=== PATIENT | female | born 1960 | race Caucasian/White ===

== ENCOUNTER 2017-08-11 08:00 | Inpatient (IN) | payer OTHER ==
[2017-08-11] MEDS ORDERED: ACETAMINOPHEN 325 MG TAB PO (09:30)
[2017-08-11] MEDS ORDERED: NACL 0.9% 3 ML SYG IV (09:30)
[2017-08-11] MEDS ORDERED: METOCLOPRAMIDE 10 MG INJ IV (09:30)
[2017-08-11] MEDS ORDERED: ALBUTEROL/IPRATROPIUM (NEB) 3 ML AMP HHN (10:30)
[2017-08-11] MEDS ORDERED: NON-FORMULARY/PATIENT OWN MED (Budesonide-Formoterol Fumarate* (Symbicort*) 1 PUFF) INHALATION (10:30)
[2017-08-11] MEDS ORDERED: DIPHENHYDRAMINE 50 MG CAP PO (10:30)
[2017-08-11] MEDS: FUROSEMIDE 20 MG TAB PO (10:30)
[2017-08-11] MEDS: CEFTRIAXONE 1 GM/50 ML (PMX) 50 ML IVPB (11:37)
[2017-08-11] MEDS: FERROUS SULFATE (EC) 325 MG TAB PO ×2 (11:37→20:31)
[2017-08-11] MEDS: APIXABAN 5 MG TABLET PO ×2 (11:38→20:31)
[2017-08-11 11:41] LABS: ADD MAN DIFF? NO
[2017-08-11 11:44] LABS: WHITE BLOOD COUNT 10.9 10^3/ul (4.8-10.8)
[2017-08-11 11:44] LABS: BASOPHILS % 0.4 % (0.0-2.0); EOSINOPHILS % 0.1 % (0.0-7.0); HEMATOCRIT 37.6 % (37.0-47.0); HEMOGLOBIN 12.2 g/dl (12.0-16.0); LYMPHOCYTES # 0.7 10^3/ul (0.8-2.9); LYMPHOCYTES % 6.3 % (15.0-51.0); MEAN CORPUSCULAR HEMOGLOBIN 26.4 pg (29.0-33.0); MEAN CORPUSCULAR HGB CONC 32.4 g/dl (32.0-37.0); MEAN CORPUSCULAR VOLUME 81.4 fl (82.0-101.0); MEAN PLATELET VOLUME 10.7 fl (7.4-10.4); MONOCYTE # 0.3 10^3/ul (0.3-0.9); MONOCYTES % 2.8 % (0.0-11.0); NEUTROPHIL # 9.6 10^3/ul (1.6-7.5); NEUTROPHILS % 88.6 % (39.0-77.0); PLATELET COUNT 255 10^3/UL (140-415); RED BLOOD COUNT 4.62 10^6/ul (4.20-5.40); RED CELL DISTRIBUTION WIDTH 14.3 % (11.5-14.5)
[2017-08-11 11:55] LABS: HEMOGLOBIN A1C 5.3 % (0-5.9)
[2017-08-11] MEDS ORDERED: AZITHROMYCIN 500MG/NS (PMX) 250 ML IVPB (12:00)
[2017-08-11 12:03] LABS: LACTIC ACID 1.4 mmol/L (0.5-2.0)
[2017-08-11 12:09] LABS: ALANINE AMINOTRANSFERASE 23 IU/L (13-69); ALBUMIN 3.5 g/dl (3.3-4.9); ALBUMIN/GLOBULIN RATIO 1.02; ALKALINE PHOSPHATASE 90 IU/L (42-121); ANION GAP 11 (8-16); ASPARTATE AMINO TRANSFERASE 16 IU/L (15-46); BILIRUBIN,INDIRECT 0.2 mg/dl (0-1.1); BILIRUBIN,TOTAL 0.2 mg/dl (0.2-1.3); BLOOD UREA NITROGEN 14 mg/dl (7-20); CALCIUM 8.7 mg/dl (8.4-10.2); CARBON DIOXIDE 31 mmol/L (21-31); CHLORIDE 104 mmol/L (97-110); CREATINE KINASE 35 IU/L (23-200); CREATININE 0.65 mg/dl (0.44-1.00); GLUCOSE 121 mg/dl (70-220); IRON 23 ug/dl (35-150); MAGNESIUM 2.1 mg/dl (1.7-2.5); PHOSPHORUS 3.4 mg/dl (2.5-4.9); POTASSIUM 3.3 mmol/L (3.5-5.1); SODIUM 143 mmol/L (135-144); TOTAL PROTEIN 6.9 g/dl (6.1-8.1)
[2017-08-11 12:13] LABS: B-TYPE NATRIURETIC PEPTIDE 3510 PG/ML (0-125)
[2017-08-11 12:17] LABS: CK INDEX 5.7; CK-MB 1.99 ng/ml (0.0-2.4); TROPONIN-I 0.029 ng/ml (0.000-0.120)
[2017-08-11 12:18] LABS: % IRON SATURATION 7 % SAT (22-52); TOTAL IRON BINDING CAPACITY 328 ug/dl (241-421)
[2017-08-11 12:33] LABS: FREE T4 (FREE THYROXINE) 1.54 ng/dl (0.64-1.79)
[2017-08-11 12:44] LABS: THYROID STIMULATING HORMONE 0.108 MIU/L (0.465-4.680)
[2017-08-11 12:49] LABS: FERRITIN 95.4 ng/ml (11.1-264.0)
[2017-08-11] MEDS: ALBUTEROL/IPRATROPIUM (NEB) 3 ML AMP HHN ×2 (14:15→19:45)
[2017-08-11 14:49] LABS: ADD UMIC YES; UR ASCORBIC ACID NEGATIVE (NEGATIVE); UR BACTERIA FEW /HPF (NONE SEEN); UR BILIRUBIN (Dip) NEGATIVE (NEGATIVE); UR BLOOD (Dip) NEGATIVE (NEGATIVE); UR CLARITY SLIGHTLY CLOUDY (CLEAR); UR COLOR YELLOW (YELLOW); UR GLUCOSE (Dip) NEGATIVE (NEGATIVE); UR KETONES (Dip) 2+ mg/dL (NEGATIVE); UR LEUKOCYTE ESTERASE (Dip) 3+ Leu/ul (NEGATIVE); UR MUCUS FEW /HPF (NONE SEEN); UR NITRITE (Dip) NEGATIVE (NEGATIVE); UR RBC 46 /HPF (0-5); UR SPECIFIC GRAVITY (Dip) 1.023 (1.003-1.030); UR SQUAMOUS EPITHELIAL CELL MODERATE /HPF (FEW); UR TOTAL PROTEIN (Dip) 1+ mg/dl (NEGATIVE); UR UROBILINOGEN (Dip) 2+ mg/dL (NEGATIVE); UR WBC 17 /HPF (0-5)
[2017-08-11 15:25] LABS: BARBITURATES Negative (NEGATIVE); BENZODIAZEPINES Negative (NEGATIVE); CANNABINOIDS Negative (NEGATIVE); COCAINE Negative (NEGATIVE)
[2017-08-11 15:26] LABS: AMPHETAMINE/METHAMPHETAMINE POSITIVE (NEGATIVE); OPIATES Positive (NEGATIVE)
[2017-08-11] MEDS: POTASSIUM CHLORIDE (SR) 20 MEQ TAB PO (16:01)
[2017-08-11] MEDS: PANTOPRAZOLE (EC) 40 MG TAB PO (17:24)
[2017-08-11] MEDS: CARISOPRODOL 350 MG TAB PO (20:32)
[2017-08-11] MEDS: SOTALOL 80 MG TAB PO (20:33)
[2017-08-11] MEDS: HYDROCODONE/APAP (5/325) TAB PO (22:35)
[2017-08-11] MEDS: ALPRAZOLAM 0.5 MG TAB PO (22:35)
[2017-08-12] MEDS: AZITHROMYCIN 500MG/NS (PMX) 250 ML IVPB (00:39)
[2017-08-12] MEDS: PANTOPRAZOLE (EC) 40 MG TAB PO (05:50)
[2017-08-12] MEDS: ALBUTEROL/IPRATROPIUM (NEB) 3 ML AMP HHN (08:03)
[2017-08-12] MEDS: APIXABAN 5 MG TABLET PO (08:17)
[2017-08-12] MEDS: FERROUS SULFATE (EC) 325 MG TAB PO (08:17)
[2017-08-12] MEDS: SOTALOL 80 MG TAB PO (08:18)
[2017-08-12] MEDS: HYDROCODONE/APAP (5/325) TAB PO (08:19)
[2017-08-12] MEDS: FUROSEMIDE 20 MG TAB PO (08:23)
[2017-08-12 08:52] LABS: ADD MAN DIFF? NO
[2017-08-12 09:25] LABS: ALANINE AMINOTRANSFERASE 24 IU/L (13-69); ALBUMIN 3.2 g/dl (3.3-4.9); ALKALINE PHOSPHATASE 80 IU/L (42-121); ANION GAP 9 (8-16); ASPARTATE AMINO TRANSFERASE 24 IU/L (15-46); BILIRUBIN,INDIRECT 0.2 mg/dl (0-1.1); BILIRUBIN,TOTAL 0.2 mg/dl (0.2-1.3); BLOOD UREA NITROGEN 17 mg/dl (7-20); CALCIUM 8.7 mg/dl (8.4-10.2); CARBON DIOXIDE 27 mmol/L (21-31); CHLORIDE 109 mmol/L (97-110); CREATININE 0.64 mg/dl (0.44-1.00); GLUCOSE 97 mg/dl (70-220); POTASSIUM 4.3 mmol/L (3.5-5.1); SODIUM 141 mmol/L (135-144); TOTAL PROTEIN 6.4 g/dl (6.1-8.1)
[2017-08-12 09:47] LABS: CHOL/HDL RATIO 3.8 RATIO; CHOLESTEROL 96 mg/dl (100-200); HDL CHOLESTEROL 25 mg/dl (37-92); LDL CHOLESTEROL,CALCULATED 52 mg/dl; MAGNESIUM 1.9 mg/dl (1.7-2.5); TRIGLYCERIDES 94 mg/dl (0-149)
[2017-08-12 09:47] LABS: PHOSPHORUS 2.9 mg/dl (2.5-4.9)
[2017-08-12] MEDS: NICOTINE (14 MG/24 HR) PATCH TRANSDERM (09:58)
[2017-08-12] MEDS: CEFTRIAXONE 1 GM/50 ML (PMX) 50 ML IVPB (10:13)
[2017-08-12] MEDS ORDERED: METHYLPREDNISOLONE 125 MG INJ IV (11:00)
[2017-08-12 11:48] LABS: BASOPHILS % 0.2 % (0.0-2.0); EOSINOPHILS # 0.2 10^3/ul (0.0-0.5); EOSINOPHILS % 1.6 % (0.0-7.0); HEMATOCRIT 31.2 % (37.0-47.0); HEMOGLOBIN 10.1 g/dl (12.0-16.0); LYMPHOCYTES # 1.4 10^3/ul (0.8-2.9); LYMPHOCYTES % 11.2 % (15.0-51.0); MEAN CORPUSCULAR HEMOGLOBIN 26.4 pg (29.0-33.0); MEAN CORPUSCULAR HGB CONC 32.4 g/dl (32.0-37.0); MEAN CORPUSCULAR VOLUME 81.5 fl (82.0-101.0); MEAN PLATELET VOLUME 11.4 fl (7.4-10.4); MONOCYTE # 0.9 10^3/ul (0.3-0.9); MONOCYTES % 7.5 % (0.0-11.0); NEUTROPHIL # 9.4 10^3/ul (1.6-7.5); NEUTROPHILS % 78.2 % (39.0-77.0); PLATELET COUNT 242 10^3/UL (140-415); RED BLOOD COUNT 3.83 10^6/ul (4.20-5.40); RED CELL DISTRIBUTION WIDTH 14.6 % (11.5-14.5)
[2017-08-12 11:48] LABS: WHITE BLOOD COUNT 12.1 10^3/ul (4.8-10.8)
== END 2017-08-12 11:27 | disposition left against medical advice (07) | DRG 193 ==
LOC: TEL 08:00
DX: J18.9 Pneumonia, unspecified organism (principal); J96.01 Acute respiratory failure with hypoxia; I50.30 Unspecified diastolic (congestive) heart failure; I42.2 Other hypertrophic cardiomyopathy; I48.0 Paroxysmal atrial fibrillation; I11.0 Hypertensive heart disease with heart failure; I27.20 Pulmonary hypertension, unspecified; G89.29 Other chronic pain; K29.70 Gastritis, unspecified, without bleeding; F41.9 Anxiety disorder, unspecified; F17.200 Nicotine dependence, unspecified, uncomplicated; J44.9 Chronic obstructive pulmonary disease, unspecified; F15.10 Other stimulant abuse, uncomplicated
CPT/HCPCS: 71045; 80053; 80061; 80307; 81001; 82550; 82553; 82728; 83036; 83540; 83605; 83735; 83880; 84100; 84439; 84443; 84484; 85025; 87086; 93005; 94640